=== PATIENT | female | born 1950 | race African-American/Black ===

== ENCOUNTER → 2017-09-25 | Outpatient (CLI) | payer BC | END | disposition home or self-care (01) | LOC: KCIC 11:20 | DX: S83.011A Lateral subluxation of right patella, initial encounter (principal); S83.012A Lateral subluxation of left patella, initial encounter; M17.0 Bilateral primary osteoarthritis of knee; X58.XXXA Exposure to other specified factors, initial encounter; Y93.89 Activity, other specified; Y92.89 Other specified places as the place of occurrence of the external cause; Y99.8 Other external cause status | CPT/HCPCS: 73562 ==

== ENCOUNTER → 2018-12-10 | Outpatient (CLI) | payer BC ==
--- NOTE | 2018-12-10 09:05 | RAD ---
Pelvic ultrasound dated 12/10/2018. No comparison available. Clinical data indication: Postmenopausal bleeding. FINDINGS: Transabdominal and transvaginal imaging performed. Uterus measures 13.5 x 10.2 x 7.5 cm. There are multiple heterogeneous mass lesions within the myometrium, largest of which is located at the posterior uterine body measuring up to 5 cm in size. The endometrium is thickened measuring up to 2.3 cm. Small amount of internal color flow. Neither ovary is clearly identified. No adnexal mass or free fluid. There are nabothian cysts at the endocervix. IMPRESSION: 1. Thickened endometrial complex, abnormal for patient's age. Differential diagnosis would include endometrial malignancy, hyperplasia and or polyps. 2. Fibroid uterus. 3. Neither ovary is clearly identified. No adnexal mass or free fluid. Electronically signed by: Haresh Lucas MD (12/10/2018 9:02 AM) [facility]
--- NOTE | 2018-12-10 09:41 | RAD ---
DATE: 12/10/2018 EXAM: MAMMO MAURA SCREENING BILATERAL HISTORY: Routine screening COMPARISON: Baseline study This study was interpreted with the benefit of Computerized Aided Detection (CAD). Breast Density: SCATTERED The breast parenchyma shows scattered fibroglandular densities. Breast parenchyma level B. FINDINGS: 2-D and 3-D tomosynthesis imaging was performed in CC and MLO projections. No spiculated mass or architectural distortion is evident. There is minimal benign type calcification. No suspicious microcalcifications are evident. IMPRESSION: There is no mammographic evidence of malignancy in either breast. BI-RADS CATEGORY: 2 BENIGN FINDING(S) RECOMMENDED FOLLOW-UP: 12M 12 MONTH FOLLOW-UP PQRS compliance statement: Patient information was entered into a reminder system with a target due date for the next mammogram. Mammography is a sensitive method for finding small breast cancers, but it does not detect them all and is not a substitute for careful clinical examination. A negative mammogram does not negate a clinically suspicious finding and should not result in delay in biopsying a clinically suspicious abnormality. "Our facility is accredited by the [employer] Mammography Program."
== END | disposition home or self-care (01) ==
LOC: US 08:05
PROVIDERS: ATTEND Family Medicine
DX: Z12.31 Encounter for screening mammogram for malignant neoplasm of breast (principal); N64.89 Other specified disorders of breast; N95.0 Postmenopausal bleeding; N88.8 Other specified noninflammatory disorders of cervix uteri; D25.9 Leiomyoma of uterus, unspecified
CPT/HCPCS: 76830; 76856; 77063; 77067

== ENCOUNTER → 2019-01-08 | Day surgery (SDC) | payer BC, MEDICARE ==
[~2019-01-08] VITALS: Ht 167.6 cm; Wt 137.0 kg
[~2019-01-08] MED LIST: ATOR10TA60 PO; DEXAMETHASONE SOD PHOS 4 MG/ML VIAL ONE; HYDROmorphone 2 MG/ML VIAL IV PRN; IV RINGERS,LACTATED 1000ML 1,000 ML IV SCH; LIDOCAINE 1% PF 2 ML VIAL. ID PRN; LIDOCAINE 2% PF 5 ML VIAL. ONE; MORPHINE SULFATE 2 MG/ML VIAL. IV PRN; ONDANSETRON PF 4 MG/2 ML VIAL. IV PRN; ONDANSETRON PF 4 MG/2 ML VIAL. ONE; PROCHLORPERAZINE 10 MG/2 ML VIAL. IV PRN; PROPOFOL 20 ML IV ONE; SEVOFLURANE 31 TO 60 MINUTES. IH ONE; TELM1TAB PO; ceFAZolin SODIUM 3 GM in IV DEXTROSE 5% 100ML 100 ML IV PRN; fentaNYL PF VIAL 100 MCG/2 ML VIAL IV PRN; fentaNYL PF VIAL 100 MCG/2 ML VIAL ONE; hydrALAZINE 20 MG/ML VIAL. ONE
--- NOTE | 2019-01-08 11:17 | RAD ---
CHEST PA LATERAL History: Preop for hysteroscopy.. No comparison. Cardiac silhouette size is mildly enlarged. The aorta is ectatic or tortuous. No evidence of pneumothorax. No pleural effusion or infiltrate. Bones appear intact. There may be degenerative changes at the shoulders. IMPRESSION: 1. Cardiac silhouette is mildly enlarged. 2. Aortic ectasia or tortuosity. 3. No evidence of infiltrate. Electronically signed by: Haresh Troncoso MD (01/08/2019 11:14 AM) [facility]
--- NOTE | 2019-01-08 11:44 | EKG ---
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
[2019-01-08 11:58] LABS: CALCIUM 9.5 mg/dL (8.5-10.1); CREATININE 0.6 mg/dL (0.6-1.0); GFR 120.7; POTASSIUM 3.7 mmol/L (3.5-5.1)
--- NOTE | 2019-01-08 15:03 | PDOC ---
BRIEF OPERATIVE NOTE Date: Jan 08, 2019 Pre-Op Diagnosis 1. PMB 2. Fibroid Uterus Post-Op Diagnosis Same + endometrial polyps Procedure Performed OP [facility] [place]. Cohn Anesthesia Type: General Blood Loss 20 ml Specimens Obtained endometrial polyps Findings multiple endometrial polyps, intracavitary fibroid 3 cm Complications none Operative Note see dictation GAMAL COHN Jr, MD Jan 08, 2019 15:03
--- NOTE | 2019-01-08 15:05 | DISCH ---
DISCHARGE INSTRUCTIONS Condition on Discharge Condition on Discharge: Stable Activity After Discharge Activity Instructions for Disc: Activity as tolerated Lifting Instructions after Dis: No heavy lifting Driving Instructions after Dis: Do not drive today Diet after Discharge Diet after Discharge: Regular Contacting the DRGenaro after DC Call your doctor for: If your condition worsens Follow-Up Follow up with: Dr. Cohn in 1 week. GAMAL COHN Jr, MD Jan 08, 2019 15:05
--- NOTE | 2019-01-08 15:27 | OP ---
DATE OF SURGERY: PREOPERATIVE DIAGNOSES: 1. Postmenopausal bleeding. 2. Fibroid uterus. POSTOPERATIVE DIAGNOSES: 1. Postmenopausal bleeding. 2. Fibroid uterus. 3. Endometrial polyps. PROCEDURE: Operative hysteroscopy. SURGEON: Gamal Cohn MD ANESTHESIA: GETA. ESTIMATED BLOOD LOSS: 20 mL. COMPLICATIONS: None. FINDINGS: Multiple endometrial polyps, intracavitary fibroid of 3 cm size. SUMMARY: A 68-year-old female with episodes of postmenopausal bleeding, required operative hysteroscopy for evaluation due to inability to obtain endometrial biopsy in the clinic. She was counseled on risks, benefits and expectations of operative hysteroscopy and voiced clear understanding to proceed. DESCRIPTION OF PROCEDURE: The patient was taken to surgery suite and placed in dorsal lithotomy position. She was prepped with Betadine solution and draped in a sterile fashion. After adequate anesthesia, a weighted speculum and curved Feliciano placed vaginally. Anterior lip of the cervix grasped with single tooth tenaculum. The cervix was dilated with Hegar dilators up to size 7. The TruClear hysteroscope was placed. There were multiple polyps that were removed with the TruClear device. There was a 3 cm intracavitary fibroid that we were unable to remove. The hysteroscope was then removed. Single tooth tenaculum and retractor were removed. The patient tolerated the procedure well, was sent to recovery room in stable condition. Sponge and needle count correct x 3. GAMAL COHN MD DR: JOSIE/prakash JOB#: [id number] / [id number]
[2019-01-08 15:40] VITALS: BP 154/73
== END ==
LOC: SURG 10:30
PROVIDERS: ATTEND Obstetrics & Gynecology
DX: N84.0 Polyp of corpus uteri (principal); D25.9 Leiomyoma of uterus, unspecified; N95.0 Postmenopausal bleeding
CPT/HCPCS: 36415; 58558; 71046; 80048; 93005; A7015; J0360; J1100; J2001; J2405; J2704; J3010

== ENCOUNTER → 2021-06-27 | Outpatient (CLI) | payer BC, MEDICARE ==
[2019-01-08 15:40] VITALS: BP 154/73
[~2021-06-27] MED LIST changes: -DEXAMETHASONE SOD PHOS 4 MG/ML VIAL ONE; -HYDROmorphone 2 MG/ML VIAL IV PRN; -IV RINGERS,LACTATED 1000ML 1,000 ML IV SCH; -LIDOCAINE 1% PF 2 ML VIAL. ID PRN; -LIDOCAINE 2% PF 5 ML VIAL. ONE; -MORPHINE SULFATE 2 MG/ML VIAL. IV PRN; -ONDANSETRON PF 4 MG/2 ML VIAL. IV PRN; -ONDANSETRON PF 4 MG/2 ML VIAL. ONE; -PROCHLORPERAZINE 10 MG/2 ML VIAL. IV PRN; -PROPOFOL 20 ML IV ONE; -SEVOFLURANE 31 TO 60 MINUTES. IH ONE; -ceFAZolin SODIUM 3 GM in IV DEXTROSE 5% 100ML 100 ML IV PRN; -fentaNYL PF VIAL 100 MCG/2 ML VIAL IV PRN; -fentaNYL PF VIAL 100 MCG/2 ML VIAL ONE; -hydrALAZINE 20 MG/ML VIAL. ONE
--- NOTE | 2021-06-27 15:34 | RAD ---
EXAMINATION: XR SHOULDER 2+ VIEWS BILAT CLINICAL HISTORY: Bilateral shoulder pain TECHNIQUE: XR SHOULDER 2+ VIEWS BILAT COMPARISON: None FINDINGS/ IMPRESSION: Advanced bilateral glenohumeral degenerative changes, greater on the right. Marked hypertrophic right acromioclavicular degenerative changes. Moderate hypertrophic left acromioclavicular degenerative ch anges. No acute fracture. Electronically signed by: Mikel Paredes DO (06/27/2021 3:32 PM) [id number]
== END ==
LOC: RAD 11:03
PROVIDERS: ATTEND Family Medicine
DX: M19.011 Primary osteoarthritis, right shoulder (principal); M19.012 Primary osteoarthritis, left shoulder
CPT/HCPCS: 73030-50